=== PATIENT | male | born 1965 | race Caucasian/White ===

== ENCOUNTER → 2019-04-12 | Emergency (ER) | payer OTHER ==
[~2019-04-12] VITALS: Ht 177.8 cm; Wt 76.7 kg
[~2019-04-12] MED LIST: IBUPROFEN 600 MG TAB PO STA; IOPAMIDOL 370 MG/ML 200 ML INFUS..BTL INJ ONE; LORAZEPAM INJ 2 MG/ML VIAL IV ONE; SODIUM CHLORIDE 0.9% 1000ML 1,000 ML IV ONE; SODIUM CHLORIDE 0.9% 1000ML 1,000 ML ONE; SODIUM CHLORIDE 0.9% 50ML 50 ML ONE
--- OUTSIDE RECORDS SUMMARY | 2019-04-12 01:05 | XMS REPORT ---
Author Author [facility] Address Unknown Phone Unavailable Care Team Providers Care First Officer And Flight Instructor Name Role Phone [address] STRE[address] Unavailable Unavailable RICARDO GARCIA Unavailable Unavailable Problems This patient has no known problems. Allergies, Adverse Reactions, Alerts This patient has no known allergies or adverse reactions. Medications This patient has no known medications. Results Test Description Test Time Test Comments Text Results Atomic Results Result Comments CBC W/PLT COUNT & AUTO DIFFERENTIAL 2019-03-28 14:02:00 WHITE BLOOD CELL COUNT (BEAKER) (test iftj=094) 4.7 K/ L 4.0-10.0 RED BLOOD CELL COUNT (BEAKER) (test qpqa=780) 4.91 M/ L 4.20-5.80 1+ Hypochromia, 1+ Microcytes, 1+ Elliptocytes HEMOGLOBIN (BEAKER) (test lmlg=968) 10.5 GM/DL 13.0-16.8 HEMATOCRIT (BEAKER) (test rrys=891) 33.7 % 40.0-50.0 MEAN CORPUSCULAR VOLUME (BEAKER) (test soiw=873) 68.6 fL 82.0-98.0 MEAN CORPUSCULAR HEMOGLOBIN (BEAKER) (test dksh=579) 21.3 pg 27.0-33.0 MEAN CORPUSCULAR HEMOGLOBIN CONC (BEAKER) (test wair=393) 31.1 GM/DL 32.0-36.0 RED CELL DISTRIBUTION WIDTH (BEAKER) (test hzay=628) 15.0 % 10.3-14.2 PLATELET COUNT (BEAKER) (test hpik=160) 426 K/CU MM 150-430 MEAN PLATELET VOLUME (BEAKER) (test byws=538) 7.9 fL 6.5-10.5 NEUTROPHILS RELATIVE PERCENT (BEAKER) (test zlzv=286) 65 % LYMPHOCYTES RELATIVE PERCENT (BEAKER) (test iwjp=006) 27 % MONOCYTES RELATIVE PERCENT (BEAKER) (test mouw=897) 6 % EOSINOPHILS RELATIVE PERCENT (BEAKER) (test bdsy=083) 1 % BASOPHILS RELATIVE PERCENT (BEAKER) (test etit=691) 1 % NEUTROPHILS ABSOLUTE COUNT (BEAKER) (test vklz=846) 3.05 K/ L 1.80-8.00 LYMPHOCYTES ABSOLUTE COUNT (BEAKER) (test zsly=994) 1.27 K/ L 1.48-4.50 MONOCYTES ABSOLUTE COUNT (BEAKER) (test kbvc=315) 0.26 K/ L 0.00-1.30 EOSINOPHILS ABSOLUTE COUNT (BEAKER) (test ghfm=512) 0.06 K/ L 0.00-0.50 BASOPHILS ABSOLUTE COUNT (BEAKER) (test jnxj=882) 0.02 K/ L 0.00-0.20 [id number] 13:59:00* Test Item Value Reference Range Comments PARTIAL THROMBOPLASTIN TIME (BEAKER) (test yilg=727) 24.5 seconds 25.8-34.5 PROTHROMBIN TIME/[id number] 13:59:00* Test Item Value Reference Range Comments PROTIME (BEAKER) (test fkkk=177) 12.0 seconds 9.8-12.0 INR (BEAKER) (test vqpr=976) 1.1 <=5.9 RECOMMENDED COUMADIN/WARFARIN INR THERAPY RANGESSTANDARD DOSE: 2.0 - 3.0 Inclu seng: PROPHYLAXIS for venous thrombosis, systemic embolization; TREATMENT for isabela ous thrombosis and/or pulmonary embolus.HIGH RISK: Target INR is 2.5-3.5 for pat ients with mechanical heart valves.COMPREHENSIVE METABOLIC [id number] 13:56:00* Test Item Value Reference Range Comments TOTAL PROTEIN (BEAKER) (test hpin=481) 7.7 gm/dL 6.0-8.5 ALBUMIN (BEAKER) (test vnsa=7130) 4.6 g/dL 3.5-5.0 ALKALINE PHOSPHATASE (BEAKER) (test rjew=095) 131 U/L 30-115 BILIRUBIN TOTAL (BEAKER) (test lfpy=765) 0.6 mg/dL 0.1-1.2 SODIUM (BEAKER) (test maoj=573) 137 meq/L 135-148 POTASSIUM (BEAKER) (test okdr=758) 4.6 meq/L 3.6-5.5 CHLORIDE (BEAKER) (test oxoc=328) 100 meq/L 98-106 CO2 (BEAKER) (test hvoj=627) 25 meq/L 24-32 BLOOD UREA NITROGEN (BEAKER) (test qien=048) 17 mg/dL 10-26 CREATININE (BEAKER) (test hmsf=276) 1.09 mg/dL 0.50-1.20 GLUCOSE RANDOM (BEAKER) (test qhmj=683) 111 mg/dL 70-110 CALCIUM (BEAKER) (test pujb=552) 9.5 mg/dL 8.5-10.5 AST (SGOT) (BEAKER) (test bisa=637) 37 U/L 5-40 ALT (SGPT) (BEAKER) (test lsfe=081) 50 U/L 5-50 EGFR (BEAKER) (test pkbl=2258) 71 mL/min/1.73 sq m ESTIMATED GFR IS NOT ACCURATE CREATININE CLEARANCE IN PREDICTING GLOMERULAR FILTRATION RATE. ESTIMATED GFR IS NOT APPLICABLE FOR DIALYSIS PATIENTS. RAPID TROPONIN [id number] 13:55:00* Test Item Value Reference Range Comments RAPID TROPONIN I (BEAKER) (test ivqd=5146) < ng/mL <0.05 B-TYPE NATRIURETIC FACTOR (BNP)2019-03-28 13:54:00* Test Item Value Reference Range Comments B-TYPE NATRIURETIC PEPTIDE (BEAKER) (test sasj=226) < pg/mL 0-100 RAD, CHEST, 1 VIEW, NON [id number] 13:46:00Reason for exam:->SHORTNESS OF BREATHShould this be performed at the bedside?->YesFINAL REPORT AP chest dated 03/28/2019 Comment: Heart is normal in size. Pulmonary vasculature is unremarkable. Lungs are clear. No pulmonary infiltrate or pleural effusion. Impression: Normal chest. Signed: Kelby Pena MDReport Verified Date/Time: 03/28/2019 13:46:40 Reading Location: [facility] B1 C013W Consult Reading Room UE [id number] 08:32:00Surgical Pathology Report Case: [id number] Authorizing Provider: Jaren Garcia MD Collected: 02/16/2019 1008 Ordering Location: [facility] PERIOPERATIVE Received: 02/16/2019 1113 SERVICES Pathologist: María Gutiérrez MD Specimen: Tissue, Right colon; terminal ileum. The addendum is issued to report the results of molecular tests performed at [facility]. RESULTS: - MICROSATELLITE INSTABILITY: MSI - HIGH (MSI-H)The results show microsatellite instability by PCR, which correlates with the result of possible loss of PMS2 protein nuclear expression by immunohistochemistry. This may be seen in Amor syndrome or sporadic cases. Germline mutation analysis may be considered for MSI-H patients with possible Amor syndrome. Please see the attached scanned documents for more information. Addendum electronically signed by María Gutiérrez MD on 03/06/2019 at 8:32 AMThe addendum is being issued to report the results of immunohistochemistry (IHC) testing for Mismatch Repair (MMR) Proteins.RESULTSMLH1: Intact nuclear expressionMSH2: Intact nuclear expressionMSH6: Intact nuclear expressionPMS2: EQUVICOAL (PENDING MSI STUDIES FOR FURTHER EVALUATION)Addendum electronically signed by María Gutiérrez MD on 02/26/2019 at 11:19 AMRIGHT COLON, ILEUM AND APPENDIX, LAPAROSCOPIC RIGHT HEM ICOLECTOMY: - INVASIVE ADENOCARCINOMA, MODERATELY DIFFERENTIATED, 10.1 CM IN GR EATEST DIMENSION, INVADING INTO PERICOLONIC TISSUE - SURGICAL RESECTION DOREEN INS, NEGATIVE FOR TUMOR - NEGATIVE FOR LYMPHOVASCULAR INVASION - TWO ADDITIONA L TUBULOVILLOUS ADENOMAS, NEGATIVE FOR HIGH GRADE DYSPLASIA - IMMUNOHISTOCHEM ISTRY FOR MMR PROTEINS TO BE REPORTED IN AN ADDENDUM - AJCC CLASSIFICATION (8TH EDITION) pT3, N0, Mx (SEE SYNOPTIC REPORT) - APPENDIX, NO SIGNIFICANT HISTOPAT HOLOGIC CHANGES - TWENTY-SEVEN LYMPH NODES NEGATIVE FOR METASTATIC CARCINOMA (0 /27) Signing Pathologist Direct Phone Line: [phone] sign ed by María Gutiérrez MD on 02/24/2019 at 1:32 PMA desmin stain has been used for e valuation of the depth of invasion. MMR protein immunohistochemistry will be rep orted in an addendum. COLON AND RECTUM: Resection, Including Transanal Disk Exci rai of Rectal Neoplasms (Colon Res - All Specimens)SPECIMEN Procedure: Ri ght hemicolectomy TUMOR Tumor Site: Right (ascending) colon Histologic T ype: Adenocarcinoma Histologic Grade: G2: Moderately differentiated Tumor Size: Greatest dimension in Centimeters (cm): 10.1 Centimeters (cm) Additional Dimension in Centimeters (cm): 6 Centimeters (cm) Additional Dimension in Centimeters (cm): 2 Centimeters (cm) Tumor Deposits: Not id entified Tumor Extent: Tumor Extension: Tumor invades through the muscularis propria into pericolorectal tissue Macroscopic Tumor Perforation : Not identified Accessory Findings: Lymphovascular Invasion: N ot identified Perineural Invasion: Not identified Treatment Effect: No known presurgical therapy MARGINS Margins: All margins are uninvolved by invasive carcinoma, high-grade dysplasia, intramucosal adenocarcinoma, and adenoma Margins Examined: Proximal Margins Examined: Distal Margins Examined: Radial or Mesenteric Distance of Invasive Carcinoma f rom Closest Margin: 6 Centimeters (cm) Closest Margin: Radial or Mesen teric LYMPH NODES Number of Lymph Nodes Involved: 0 Number of Lymph Node s Examined: 27 PATHOLOGIC STAGE CLASSIFICATION (pTNM, AJCC 8th Edition) Magy shana Tumor (pT): pT3 Regional Lymph Nodes (pN): pN0 ADDITIONAL FINDINGS Additional Pathologic Findings: Adenoma(s) 98660, 61575, 75114 X 4Malignant neoplasm of splenic flexure Right colon, terminal ileum Received fresh labeled with the patient's name, accession number and "right colon, terminal ileum" is a right hemicolectomy consisting of a segment of unremarkable terminal ileum terri suring 14 cm in length and 1.7 cm in diameter, a segment of colon measuring 21 c m in length and 5.5 cm in diameter. There is an attached unremarkable appendix m easuring 8.7 cm in length and 0.5 cm in diameter. There is a moderate amount of attached mesenteric adipose tissue.The serosa displays tattoo ink at the distal aspect. The remaining serosa is pink and smooth. The specimen is opened to revea l an ill-defined, florentino-pink, firm, polypoid, exophytic and circumferential mass m easuring 10.1 x 6 x 2 cm. The mass involves the muscularis propria and invades i nto the underlying fat and abuts the serosa. The mass is 6 cm from the closest m esenteric margin, 7.5 cm from the distal margin and 7.5 cm from the ileocecal va lve. Located 4.5 cm proximal to the mass is a florentino-pink polyp measuring 1.1 x 1.1 x 0.5 cm, which is confined to the mucosa. Within the cecal pouch, 8 cm proximal from the main mass, is a second florentino-pink polyp measuring 2 x 1 x 0.7 cm. The s econd polyp is 4 cm from the appendiceal orifice and 6 cm from the closest mesen teric margin.The remaining colonic mucosa is florentino-pink and smooth with normal arc hitecture. There are multiple pink-tapia lymph nodes ranging from 0.1-1.3 cm. Rep resentative sections are submitted.Ink code:Blue-serosaSection code: A1, represe ntative of proximal and distal margins, en faceA2. mesenteric margin closest to main mass, en faceA3, mesenteric margin close to polyp in the cecal pouch, en fa ce A4, ileocecal valve A5-A6, cecal pouch polyp to serosa, bisected A7, polyp cl oser to main mass to serosa A8, teleservices representative of appendix A9-A10, mass to seros a A11-A16, mass to underlying ffjK45-C54, mass to uninvolved colonic mucosa A19, one lymph node, ytogpssckzlsZ07, three possible intact lymph nodes A21, one lym ph node, bisected A22, one lymph node, bisected A23, one lymph node, trisectedA2 4, one lymph node, bisected A25, one lymph node, zzaqooqbZ30, one lymph node, tr afmvnhiF46-60, one lymph node, bisected in each cgxywknjJ95, one lymph node, tri sected A34, five possible intact lymph nodes A35, four possible intact lymph no seng CG/ewPerformed.The interpretation of this case included the use of immunohis tochemistry or special stains.Please see the immunohistochemistry results in the COMMENT and ADDENDUM section. Control Slides Examined: In-house known positive controls were evaluated along with the test tissue. These control slides run a longside of the patients sample show appropriate staining. Internal positive and negative controls when available are evaluated Immunohistochemistry technical t esting was performed at [facility], Pathology Laboratory w here it was developed and its performance characteristics were determined. It tubbs s not been cleared or approved by the U.S. Food and Drug Administration. The FDA has determined that such clearance or approval is not necessary. The test is us ed for clinical purposes. It should not be regarded as investigational or for re search. This laboratory is certified under the Clinical Laboratory Improvement A mendments of 1988 (CLIA-88) as qualified to perform high complexity clinical lab oratory testing.[facility], Department of Pathology, [address] [place] [address], [facility], [address] [place] [address], [facility] [place], Department of Pathology, [address] [place] [address], [id number] 06:11:00* Test Item Value Reference Range Comments PHOSPHORUS (BEAKER) (test fwmp=895) 3.6 mg/dL 2.3-4.7 [id number] 06:11:00* Test Item Value Reference Range Comments MAGNESIUM (BEAKER) (test vvot=809) 2.1 mg/dL 1.6-2.6 COMPREHENSIVE METABOLIC [id number] 06:11:00* Test Item Value Reference Range Comments TOTAL PROTEIN (BEAKER) (test mdko=164) 6.4 gm/dL 6.0-8.3 ALBUMIN (BEAKER) (test fkna=9007) 3.4 g/dL 3.5-5.0 ALKALINE PHOSPHATASE (BEAKER) (test cnwv=559) 120 U/L 40-150 BILIRUBIN TOTAL (BEAKER) (test sjim=918) 0.3 mg/dL 0.2-1.2 SODIUM (BEAKER) (test xemg=005) 134 meq/L 136-145 POTASSIUM (BEAKER) (test eavj=516) 4.5 meq/L 3.5-5.1 CHLORIDE (BEAKER) (test igba=646) 105 meq/L 98-107 CO2 (BEAKER) (test xpqw=844) 23 meq/L 22-29 BLOOD UREA NITROGEN (BEAKER) (test zobp=882) 10 mg/dL 7-21 CREATININE (BEAKER) (test arsh=702) 0.92 mg/dL 0.57-1.25 GLUCOSE RANDOM (BEAKER) (test uitf=911) 124 mg/dL 70-105 CALCIUM (BEAKER) (test sott=307) 8.7 mg/dL 8.4-10.2 AST (SGOT) (BEAKER) (test yfsb=196) 14 U/L 5-34 ALT (SGPT) (BEAKER) (test shga=216) 18 U/L 6-55 EGFR (BEAKER) (test kpvj=8573) 86 mL/min/1.73 sq m ESTIMATED GFR IS NOT ACCURATE CREATININE CLEARANCE IN PREDICTING GLOMERULAR FILTRATION RATE. ESTIMATED GFR IS NOT APPLICABLE FOR DIALYSIS PATIENTS. HEMOGLOBIN AND [id number] 05:24:00* Test Item Value Reference Range Comments HEMOGLOBIN (BEAKER) (test stpn=169) 8.1 GM/DL 13.7-17.5 HEMATOCRIT (BEAKER) (test pxze=314) 27.1 % 40.1-51.0 POCT-GLUCOSE [id number] 08:21:00* Test Item Value Reference Range Comments POC-GLUCOSE METER (KULDIP) (test qkio=4941) 110 mg/dL 70-110 TESTED AT [facility] [address] [facility] [address]
--- NOTE | 2019-04-12 01:30 | NUR ---
TOOK PT TO ROOM 10 AT THIS TIME, STARTED 20G PIV TO LT AC, ONE STICK, PT TOLERATED WELL. PT VERY RESTLESS, PACING IN ROOM, STATING THAT HE JUST CANT GET COMFORTABLE. PTS S.O STATES THAT HE HAS BEEN AWAKE FOR ABOUT 38 HOURS AND THAT HE PROBABLY HAS UNDIAGNOSED RESTLESS LEG.
--- NOTE | 2019-04-12 01:45 | NUR ---
RELAXATION KIT GIVEN TO PT AT THIS TIME. NOTIFIED PT AND SIGNIFICANT OTHER DOOR IS TO REMAIN OPEN TO KEEP WATCH OF PATIENT TO ENSURE SAFETY. ATTEMPTED TO FIND MEDITATION CHANNEL FOR PATIENT TO PROVIDE RELAXATION. COULD NOT FIND CHANNEL, PT REPORTED "ANY CHANNEL IS FINE" AND GAVE SIGNIFICANT OTHER REMOTE. RM LIGHT TURNED OFF TO DECREASE EXTERNAL STIMULI FOR PT.
--- NOTE | 2019-04-12 02:00 | NUR ---
PTS S.O HAD SOME QUESTIONS ABOUT THE CONSENT FOR TREATMENT. SHE STATES THAT SHE CALLED HER INSURANCE AND WAS TOLD TO CLARIFY THE PAYMENT OF THE ROOM BEFORE SHE SIGNS. RESGISTRATION WAS NOTIFIED.
[2019-04-12 02:15] LABS: ALBUMIN 3.8 g/dL (3.5-5.0); ALBUMIN/GLOBULIN RATIO 1.2 (0.8-2.0); ANION GAP 15.3 mmol/L (8-16); CALCIUM 8.9 mg/dL (8.4-10.2); CREATININE, SERUM 1.33 mg/dL (0.72-1.25); POTASSIUM 3.3 mmol/L (3.5-5.1)
--- NOTE | 2019-04-12 02:15 | NUR ---
PT CALLED AT THIS TIME, STATING THAT HIS LEGS ARE GETTING WORSE. THEY ARE MOVING MORE. DR PICHARDO NOTIFIED.
[2019-04-12 02:21] LABS: CREATINE KINASE MB 1.8 ng/mL (0-5.0)
[2019-04-12 02:23] LABS: BASOPHILS % 0.5 % (0.0-1.0); EOSINOPHILS # (AUTO) 0.1 (0.0-0.4); EOSINOPHILS % 1.1 % (0.0-6.0); HEMATOCRIT 31.7 % (38.2-49.6); HEMOGLOBIN 9.1 g/dL (14.0-18.0); LYMPHOCYTES # (AUTO) 3.1 (1.0-3.2); MEAN CORPUSCULAR HEMOGLOBIN 20.4 pg (28-32); MEAN CORPUSCULAR HGB CONC 28.7 g/dL (31-35); MEAN CORPUSCULAR VOLUME 71.2 fL (81-99); MONOCYTES # (AUTO) 0.5 (0.2-0.8); MONOCYTES % 6.9 % (4.4-11.3); NEUTROPHILS # (AUTO) 3.8 (2.1-6.9); NEUTROPHILS % 50.4 % (38.7-80.0); PLATELET COUNT 340 x10e3/uL (140-360); RED BLOOD COUNT 4.45 x10e6/uL (4.3-5.7); RED CELL DISTRIBUTION WIDTH 17.3 % (11.7-14.4)
--- NOTE | 2019-04-12 02:38 | Diagnostic Imaging Report ---
EXAMINATION: CHEST SINGLE (PORTABLE) INDICATION: Short of breath COMPARISON: None FINDINGS: AP view TUBES and LINES: None. LUNGS: Lungs are well inflated. Lungs are clear. There is no evidence of pneumonia or pulmonary edema. PLEURA: No pleural effusion or pneumothorax. HEART AND MEDIASTINUM: The cardiomediastinal silhouette is unremarkable. BONES AND SOFT TISSUES: No acute osseous lesion. Soft tissues are unremarkable. UPPER ABDOMEN: No free air under the diaphragm. IMPRESSION: No acute thoracic radiographic abnormality. Signed by: Gerson Morgan DO on 04/12/2019 2:35 AM
--- NOTE | 2019-04-12 04:35 | NUR ---
S.O AT DOOR OF ROOM ASKING FOR RESULTS OF CT.
--- NOTE | 2019-04-12 04:36 | Diagnostic Imaging Report ---
EXAM: CT Chest WITH contrast (PE protocol) 04/12/2019 2:58 AM INDICATION: Difficulty breathing COMPARISON: None TECHNIQUE: Chest was scanned utilizing a multidetector helical scanner from the lung apex through the level of the adrenal glands with administration of IV contrast. Coronal and sagittal reformations were obtained. Routine protocol was performed. IV CONTRAST: 100 mL of Isovue 370 COMPLICATIONS: None RADIATION DOSE: Total DLP: 622 mGy*cm Estimated effective dose: (DLP x 0.014 x size factor) mSv CTDIvol has been reviewed. It is below the limits set by the Radiation Protocol Committee (RPC). Dose modulation, iterative reconstruction, and/or weight based adjustment of the mA/kV was utilized to reduce the radiation dose to as low as reasonably achievable. FINDINGS: Evaluation limited by suboptimal contrast timing and respiratory/cardiac motion. LINES/ TUBES: None. LUNGS AND AIRWAYS: Limited evaluation of the distal segmental and subsegmental arteries due to delayed scan timing relative to contrast bolus, with diminished opacification of peripheral pulmonary arteries,. Also cardiac and respiratory motion limits peripheral pulmonary artery evaluation. No pulmonary arterial filling defects identified within the main, lobar, or proximal segmental pulmonary arteries. A 4 mm peripheral nodule in the right lower lobe, likely benign, no follow-up required. Airways are normal. PLEURA: The pleural spaces are clear. HEART AND MEDIASTINUM: The thyroid gland is normal. No mediastinal, hilar or axillary lymphadenopathy. The heart is normal in size. There is no pericardial effusion. Hypoplastic right vertebral artery. UPPER ABDOMEN: Unremarkable. BONES: Advanced degenerative changes in the in the lower cervical spine. SOFT TISSUES: Unremarkable. IMPRESSION: No pulmonary embolus detected to the distal segmental level, evaluation of the subsegmental pulmonary arteries is limited as detailed above. No acute thoracic abnormality. Advanced degenerative changes in the lower cervical spine. Dedicated cervical spine imaging should be considered if warranted by clinical symptoms. Signed by: Gerson Morgan DO on 04/12/2019 4:33 AM
--- NOTE | 2019-04-12 04:40 | NUR ---
DR PICHARDO IN ROOM AT THIS TIME WITH RESULTS.
[2019-04-12 05:00] VITALS: BP 116/62
== END | disposition home or self-care (01) ==
LOC: ER 01:03
DX: R06.00 Dyspnea, unspecified (principal); F41.1 Generalized anxiety disorder; G25.81 Restless legs syndrome; Z85.038 Personal history of other malignant neoplasm of large intestine
CPT/HCPCS: 36415; 71045; 71260; 80053; 82550; 82553; 84484; 85025; 85379; 93005; 96374; 99284; J2060; J7030; Q9967